=== PATIENT | female | born 1995 | race African-American/Black ===

== ENCOUNTER 2023-09-30 17:27 | Emergency (ER) | payer BC, SELFPAY ==
[2023-09-30 17:29] VITALS: BP 158/87
[2023-09-30 17:51] LABS: % Basophils 0.7 % (0-2); % Eosinophils 1.5 % (0-6); % Immature Granulocytes 0.3 % (0-0.5); % Lymphocytes 26.3 % (20.5-51.1); % Monocytes 10.5 % (1.7-9.3); % Neutrophils 60.7 % (42.2-75.2); Absolute Basophils 0.1 10^3/uL (0-0.2); Absolute Eosinophils 0.1 10^3/uL (0-0.7); Absolute Lymphocytes 1.9 10^3/uL (1.2-3.4); Absolute Monocytes 0.8 10^3/uL (0.1-0.6); Absolute Neutrophils 4.5 10^3/uL (1.4-6.5); Hematocrit 37.9 % (37.0-47.0); Hemoglobin 11.8 g/dL (12.0-16.0); Mean Corp Hgb Conc. 31.1 g/dL (33.0-37.0); Mean Corpuscular Hgb 26.6 pg (27.0-31.0); Mean Corpuscular Volume 85.4 fL (81.0-99.0); Mean Platelet Volume 10.7 fL (7.4-10.4); Nucleated Red Blood Cells % 0 %; Platelet Count 302 10^3/uL (130-400); Red Blood Cell Count 4.44 10^6/uL (4.20-5.40); Red Cell Dist. Width 14.6 % (11.5-14.5); White Blood Cell Count 7.3 10^3/uL (4.8-10.8)
[2023-09-30 18:04] LABS: ALT (SGPT) 12 U/L (0-35); AST (SGOT) 18 U/L (14-36); Albumin 4.2 g/dl (3.5-5.0); Alkaline Phosphatase 95 U/L (38-126); Blood Urea Nitrogen 6 mg/dl (7-17); Calcium 9.7 mg/dl (8.4-10.2); Carbon Dioxide 26 mmol/L (22-30); Chloride 105 mmol/L (98-107); Glucose 88 mg/dl (70-99); Sodium 139 mmol/L (135-145); Total Bilirubin 0.5 mg/dl (0.2-1.3); Total Protein 7.9 g/dl (6.3-8.2); eGFR > 60.00
[2023-09-30 18:15] LABS: Troponin I < 0.012 ng/ml
[2023-09-30 19:41] LABS: D-Dimer 0.33 ug/mlFEU (0.00-0.50)
[2023-09-30 19:44] LABS: HCG, Serum Qualitative Screen Negative
--- NOTE | 2023-09-30 19:57 | ED.GENMED ---
History of Present Illness
General
Chief Complaint: Chest Pain
Source: patient
Exam Limitations: none
Time Seen by Provider: 09/30/23 18:37
Nursing documentation reviewed up to this point in time: agreed with
History of Present Illness
History of Present Illness:
28 y/o F with h/o asthma
works at the [employer]
5 days ago had episode of chest pain that felt like tightnesss and pressure and right forearm tingling lasting 2-3 minutes
then it resolved and she felt fine
then 2 days ago she had another episode except this time no arm numbness
and today at 830 am while at work she had a 3rd
all lasting only 2-3 minutes and resolving
she feels fine now
she has h/o asthma and used her inhaler today which actually did make her feel al ittle better
she has not had any exertional chest pain, shortness of breath, leg swelling, fever, cough, cod symptoms, vomiting, nausea
pt has no cad, fhx of premature cad
nonsmoker
no meds
Past History
Past History
ED Past Medical History: Asthma
ED Past Surgical History: None
Social History
Tobacco: Non-smoker
Alcohol: None
Drug: None
Personal: Single
Living: with family
Employment: Employed
Family History
Family History: Hypertension; Negative Early CAD, CAD or Sudden
Review of Systems
Review of Systems
Allergies reviewed?: Yes
All Other Systems: Not applicable
Phy Exam
Physical Exam
Physical Exam:
GENERAL: Alert , in no apparent distress
EYE: pupils equal and reactive
NECK: Supple
ENT: o/p clr, mmm.
CARDIAC: Regular rate and rhythm . no murmur apprecaited
LUNGS: Clear breath sounds bilaterally, no acute respiratory distress, no wheezes/rales/rhonchi
ABDOMEN: Soft, without focal tenderness, no r/g, no cvat, normal bowel sounds
NEUROLOGICAL: Alert and oriented, no focal neuro deficits, forearm normal strength and sensation
SKIN: Warm and dry, skin intact.
MUSCULOSKELETAL: No edema, well perfused. neg george's sign
PSYCH: Normal and appropriate interaction.
Scores
Heart Score for Chest Pain Patients
STEMI patient?: No
History: Slightly or Non-Suspicious
ECG: Nonspecific Repolarization
Age: </= 45 years
Risk Factors: No Risk Factors
Troponin: </= Normal Limit
Heart Score for Chest Pain Patients: 1
Heart Score Risk: 2.5% MACE over next 6 weeks
Course
Orders/Labs/Results
Orders:
Orders
09/30/23 17:31
Electrocardiogram (*1) Stat
Reason for Study: Chest Pain
09/30/23 17:42
Complete Blood Count/With Diff Urgent
Comprehensive Metabolic Panel Urgent
HCG, Serum Qualitative Screen Urgent
Comment: ADD ON
Troponin I Urgent
09/30/23 19:09
Add On- LAB Urgent
Tests Added?: hcg qual serum
09/30/23 19:13
D-Dimer Urgent
09/30/23 19:49
CR Chest - 2 Views Urgent
Comment:
Reason For Exam: chest wilfred
Abnormal Lab Results
09/30/23
17:42
Hgb 11.8 L g/dL
(12.0-16.0)
MCH 26.6 L pg
(27.0-31.0)
MCHC 31.1 L g/dL
(33.0-37.0)
RDW 14.6 H %
(11.5-14.5)
MPV 10.7 H fL
(7.4-10.4)
Absolute Monos (auto) 0.8 H 10^3/uL
(0.1-0.6)
Monocytes % 10.5 H %
(1.7-9.3)
BUN 6 L mg/dl
(7-17)
09/30/23 17:42
09/30/23 17:42
Vital Signs
Initial and Last Documented VS:
Initial Vital Signs
Temp Pulse Resp BP Pulse Ox
97.8 F 108 18 158/87 100
09/30/23 17:29 09/30/23 17:29 09/30/23 17:29 09/30/23 17:29 09/30/23 17:29
Last Documented Vital Signs
Temp Pulse Resp BP Pulse Ox
97.8 F 93 14 113/66 100
09/30/23 17:29 09/30/23 20:20 09/30/23 20:20 09/30/23 20:30 09/30/23 20:45
MDM/Problems Addressed
Differential Diagnosis Includes:
acs, pe, anxiety, gerd, elevated bp
MDM/Problems Addressed:
28 y/o F h/o asthma
here after having a 3rd shot episode today 830 am lasting 3 minutse where she got chest tightness/pressure and right forearm tingling
she has had 2 other of these not related to exeretion/activity over 5 days
she was convinced by co workers to come in but worked her shift first
no other episodes today
she doesn't think she has been under any signficiatn stress but her brother was killed las tyear and maybe that's what is making her stressed but she doesnt' really feel it otherwise
no fever/cough
no PE rf
no ocps
looks comfortable
bp in room is normal (appreciate elevated in traige)
hr normal
no tachypnea
no wheezing
right arm forearm normla senstaion and strength
ekg flat t wave v2 but otherwise no ischmic changes
cxr clear
d dimer neg
trop was drawn > 6 hours from pain and neg which in setting of this very brief episode of pain is very unlikeyl to be ACS
d/c home
*Critical Care Note
Total Time (30-74mins, 75-104mins- exclusive of procedures): Not Applicable
ED Attending Note
-
Portions of this chart may have been created with voice recognition software.� Occasional wrong word or��sound alike� substitutions may have occurred due to the inherent limitations of voice recognition software.
Discharge Plan
Departure
Patient Disposition: Home (Routine Discharge)
Date of Disposition: 09/30/23
Time of Disposition: 21:01
Patient with high blood pressure during this ER visit?: No
Condition: Fair
Covid-19: Not Applicable
Discharge Problem:
Chest pain, Mild cardiomegaly
Instructions: Chest Pain PCP Follow Up
Referrals:
Jacinto Arvizu MD [Active] - Follow up in 10 days (CARDIOLOGY)
Activity Restrictions/Additional Instructions:
WE ARE NOT SURE THE CAUSE OF YOUR SYPMTOMS
BUT YOUR EKG AND BLOOD WORK AND CHEST XRAY DO NOT SHOW ANY SIGNS FOR EMERGENCIES
YOUR HEART IS SLIGHTLY ENLARGED IN APPEARANCE ON CHEST XRAY
YOU NEED TO CALL YOUR FAMILY DOCTOR OR CALL THE EKG TECH FOR REFERRAL
RETURN FOR: WORSENING SYMPTMOS, PROGRESSIVE SYPMTOMS LASTING LONGER, PASSING OUT, SHORTNESS OF BREATH OR ANY CONCERNS.
YOU CAN USE YOUR INHALER NEEDED
Interventions
Interventions:
*Risk Screen - Suicide Last Done: 09/30/23 19:06
*General Assessment Last Done: 09/30/23 19:06
*Neglect/Abuse Screening Last Done: 09/30/23 19:06
*ED COVID-19 Vaccine History Last Done: 09/30/23 19:06
*Nursing Disposition Last Done: 09/30/23 21:11
ED- Cardiac Assessment Last Done: 09/30/23 19:06
Discharge Date and Time
Discharge Date/Time: 09/30/23 21:11
Print Language: EGYPTIAN
[2023-09-30 20:05] VITALS: BP 97/73
[2023-09-30 20:20] VITALS: BP 108/70
[2023-09-30 20:30] VITALS: BP 113/66
== END 2023-09-30 21:11 | disposition home or self-care (01) ==
LOC: EMR 17:27
PROVIDERS: Physician Assistant; EMERGENCY PHYSICIAN Emergency Medicine
DX: R07.89 Other chest pain (principal); I51.7 Cardiomegaly; J45.909 Unspecified asthma, uncomplicated
CPT/HCPCS: 99283; 71046; 80053; 84484; 84703; 85025; 85379; 93005